=== PATIENT | female | born 1950 | race Two or more races ===

== ENCOUNTER 2018-07-16 07:30 | Day surgery (SDC) | payer MEDICARE, BC ==
[~2018-07-16] VITALS: Ht 162.6 cm; Wt 61.2 kg
[2018-07-16] VITALS (8 sets, daily range): BP systolic 92–102; BP diastolic 58–66
[~2018-07-16 07:30] MED LIST: NKM
--- NOTE | 2018-07-16 07:47 | Short Stay Surgery H&P ---
History of Present Illness History of Present Illness Chief Complaint Patient is for screening colon HPI Anna Navarrete is a 68 year old female who was admitted on for Screening Patient History Allergies: Coded Allergies: ASPIRIN (Verified Allergy, Intermediate, RHINITIS, 04/22/13) Medication History Scheduled No Known Medications* (NKM - No Known Medications*), 0 ., (Reported) Review of Systems Cardiovascular: Reports: no symptoms Respiratory: Reports: no symptoms Skeletal: Reports: no symptoms Gastrointestinal: Reports: no symptoms Genitourinary: Reports: no symptoms Neurologic: Reports: no symptoms Endocrine: Reports: no symptoms Physical Exam Skin: normal HENT: normal Heart: normal Lungs: normal Abdomen: normal Extremities: normal Genitourinary: normal Plan Plan of Care Total colonoscopy Preop Interventions None Summary of Findings See the reports Attestation Are the patient's medical conditions optimized for surgery? Attestation Response: yes Malik Henderson MD Jul 16, 2018 07:47
--- NOTE | 2018-07-16 07:48 | Pre-Procedure Note/Attestation ---
Pre-Procedure Note/Attestation Complete Prior to Procedure Planned Procedure: left Procedure Narrative: Examination of the total colon via colonoscopy Indications for Procedure Pre-Operative Diagnosis: R/O colon polyp/CA Attestation I attest that I discussed the nature of the procedure; its benefits; risks and complications; and alternatives (and the risks and benefits of such alternatives ), prior to the procedure, with the patient (or the patient's legal sales representative malt liquors). I attest that, if there was a reasonable possibility of needing a blood transfusion, the patient (or the patient's legal sales representative malt liquors) was given the [facility] standardized written summary, pursuant to the Reji Doug Blood Safety Act ([place] Health and Safety Code # 1645, as amended). I attest that I re-evaluated the patient just prior to the surgery and that there has been no change in the patient's H&P, except as documented below: Malik Henderson MD Jul 16, 2018 07:48
--- NOTE | 2018-07-16 07:49 | Discharge Instructions ---
Discharge Instructions Discharge Instructions Follow up with: will talk with family For Congestive Heart Failure Reminder Report to your physician any weight gain of 5 pounds or more in one week. Malik Henderson MD Jul 16, 2018 07:49
[2018-07-16] MEDS ORDERED: LR 1000ml ONE (08:00)
[2018-07-16] MEDS ORDERED: Propofol 200mg/20ml IV ONE (08:00)
[2018-07-16] MEDS ORDERED: Lidocaine 1% MPF 10mg/ml 5ml ONE (08:00)
--- NOTE | 2018-07-16 08:09 | Anethesia Preoperative Eval ---
Anesthesia Pre-op PMH/ROS General Date of Evaluation: Jul 16, 2018 Time of Evaluation: 08:00 Anesthesiologist: karla ASA Score: ASA 2 Mallampati Score Class I : Soft palate, uvula, fauces, pillars visible Class II: Soft palate, uvula, fauces visible Class III: Soft palate, base of uvula visible Class IV: Only hard plate visible Mallampati Classification: Class II Surgeon: roseanne Diagnosis: egd/colonoscopy Surgical Procedure: colon screening Anesthesia History: none Social History: smoking - nonsmoker Family History: no anesthesia problems Allergies: Coded Allergies: ASPIRIN (Verified Allergy, Intermediate, RHINITIS, 04/22/13) Medications: see eMAR Patient NPO?: Yes Past Medical History Cardiovascular: Reports: other - hypercholesterolemia Neurologic/Psychiatric: Reports: depression/anxiety PSxH Narrative: sinus sx, tonsillectomy Anesthesia Pre-op Phys. Exam Physician Exam Constitutional: NAD Neurologic: CN 2-12 intact Cardiovascular: RRR Respiratory: CTA Gastrointestinal: S/NT/ND Airway Exam Mallampati Score: Class II MO: limited Neck: flexible TMD: 2fb ROM: limited Anesthesia Pre-op A/P Risk Assessment & Plan Assessment: asa2 Plan: mac Status Change Before Surgery: No Pre-Antibiotics Drug: Kasia Lebron MD Jul 16, 2018 08:09
[2018-07-16] MEDS ORDERED: DiphenhydrAMINE 50mg/ml Inj IVP PRN (08:15)
[2018-07-16] MEDS ORDERED: Midazolam 2mg/2ml Inj IVP PRN (08:15)
[2018-07-16] MEDS ORDERED: Atropine Inj 1mg/10ml Syr IV PRN (08:15)
[2018-07-16] MEDS ORDERED: fentaNYL 100 mcg/2 mL IV PRN (08:15)
[2018-07-16] MEDS ORDERED: ASPIR 8181 MG ORAL (08:40)
--- NOTE | 2018-07-16 08:41 | Endoscopy Procedure Note ---
Endoscopy Procedure Note General Indication for Procedure: screening colon ? intra-abdominal mass Procedures Performed: EGD - Completely Normal Upper GI. endoscopy, biopsy was done per random from gastric body, colonoscopy - Minimal internal hemorrhoids otherwise completely normal total colonoscopy upto the cecal base. Specimen: yes Pt Tolerated Procedure Well: Yes Estimated Blood Loss: none Anesthesia Anesthesiologist: Dr. Howell Anesthesia: moderate sedation Medications Medication Given: see anesthesia record Inserted Devices Implant(s) used?: No Quality Quality of Bowel Preparation: Excellent Did scope reach the cecum?: Yes Was there any complications?: No GI Core Measures 50 yrs or older w/o bx or poly: Yes 10yrs. F/U not recommended: No 10 yrs. F/U needed: Yes 18 years or older w/prev. colo: No <3yrs. since last colonoscopy: No Med reason:<3 yrs.: System Reason:<3 yrs.: Last colonoscopy >= to 3yrs: Yes Malik Henderson MD Jul 16, 2018 08:41
--- NOTE | 2018-07-16 09:44 | Immediate Post-Op Evaluation ---
Immediate Post-Op Evalulation Immediate Post-Op Evalulation Procedure: edg/colonoscopy/bx Date of Evaluation: Jul 16, 2018 Time of Evaluation: 08:59 IV Fluids: 200ml lr Blood Products: none Estimated Blood Loss: negligible Blood Pressure Systolic: 94 Blood Pressure Diastolic: 60 Pulse Rate: 58 Respiratory Rate: 18 O2 Sat by Pulse Oximetry: 100 Temperature (Fahrenheit): 97.6 Pain Score (1-10): 0 Nausea: No Vomiting: No Complications none Patient Status: awake, reacts, patent Hydration Status: adequate Drug: Kasia Lebron MD Jul 16, 2018 09:44
--- NOTE | 2018-07-16 09:45 | 48 Hour Post Anesthesia Eval ---
Post Anesthesia Evaluation Procedure: edg/colonoscopy/bx Date of Evaluation: Jul 16, 2018 Time of Evaluation: 09:01 Blood Pressure Systolic: 101 0: 66 Pulse Rate: 58 Respiratory Rate: 18 Temperature (Fahrenheit): 97.6 O2 Sat by Pulse Oximetry: 100 Airway: patent Nausea: No Vomiting: No Pain Intensity: 0 Hydration Status: adequate Cardiopulmonary Status: stable Mental Status/LOC: patient returned to baseline Post-Anesthesia Complications: none Follow-up care needed: N/A Kasia Howell MD Jul 16, 2018 09:45
--- NOTE | 2018-07-16 15:16 | Operative Note - Dictated ---
DATE OF OPERATION: 07/16/2018 SURGEON: Malik Henderson M.D. PROCEDURE: Esophagogastroduodenoscopy with biopsy. PREOPERATIVE DIAGNOSIS: Possible intra-abdominal mass, question rule out gastric source. POSTOPERATIVE DIAGNOSIS: Completely normal upper GI endoscopy. No evidence of any abnormality in the stomach. Biopsy was taken from gastric body. MEDICATION USED: Per Dr. Traore. INSTRUMENT: GIF Olympus upper GI video endoscope. DESCRIPTION OF PROCEDURE: The patient after arriving in the endoscopy unit, was told about risks and benefits of the procedure that she accepted and signed informed consent. She was then put on the left lateral decubitus position. After adequate IV sedation, the scope was gently passed through the cricopharyngeal area, was lodged into the upper esophagus, and gradually advanced towards gastroesophageal junction. The entire length of the esophagus looked normal. There was no any evidence of stricture, ulcers, inflammatory process, or exudative process etc. GE junction also looked normal without evidence of Will's or hiatal hernia, etc. At this time, the scope was gradually advanced into the stomach. Gastric cavity was distended with insufflation of air and the areas of the fundus and the body and the antrum were examined in passementerie worker fashion, which revealed basically normal findings. There was no evidence of inflammatory process, mass, external pressure, or submucosal lesion, etc. The retroflexion maneuver was also applied and the area of the gastroesophageal junction was examined in a closer fashion, which revealed completely to be within normal limits. Finally, after obtaining the random biopsy from gastric body, the scope was gradually passed through the antrum, introduced into the pylorus. First and second portion of duodenum were found to be also completely normal. Finally, the scope was pulled out and procedure was terminated. The patient tolerated the procedure well. Malik Henderson M.D. DR: TAMERA JOB#: [id number] CC:
--- NOTE | 2018-07-16 15:46 | Operative Note - Dictated ---
DATE OF OPERATION: 07/16/2018 SURGEON: Malik Henderson M.D. ANESTHESIOLOGIST: Dr. Traore. PROCEDURE: Total colonoscopy. PREOPERATIVE DIAGNOSIS: Intra-abdominal mass, question left upper quadrant lesion, rule out colonic source ? POSTOPERATIVE DIAGNOSIS: Minimal internal hemorrhoid, otherwise completely normal total colonoscopy up to the base of the cecum as examined. MEDICATION USED: Per Dr. Traore. INSTRUMENT: GIF Olympus videocolonoscope. DESCRIPTION OF PROCEDURE: The patient, after arriving in endoscopy unit, was told about risks and benefits of the procedure which she accepted and signed informed consent. She was then put on the left lateral decubitus position. After adequate IV sedation, the scope was gradually introduced in the rectoanal area. It revealed evidence of hemorrhoidal tags outside of the rectum of no great significance. The scope was then introduced into the rectum and retroflexion maneuver was applied, which revealed evidence of minimal internal hemorrhoids without friability. The rectum itself was completely normal without any mass or inflammatory process, etc. Gradually at this time, the scope was passed through the rectosigmoid area, introduced into the left descending colon, and was advanced towards the splenic flexure. These areas also remained to be completely normal. There was no any evidence of extracolonic pressure, masses, submucosal lesions, etc. At this time, the scope was advanced into the transverse colon, reaching to the hepatic flexure, guided into the right colon all the way to the base of the cecum where the appendiceal opening was also visualized. All these areas also continued to be within normal limits without any pathology. The colon cleanup was excellent and at this time, within 6 minutes, the scope was gradually pulled out and finding no other abnormalities, procedure was terminated. The patient tolerated the procedure well and left the endoscopy room in good condition. Malik Henderson M.D. DR: Katelin JOB#: [id number] CC:
== END 2018-07-16 09:45 | disposition home or self-care (01) ==
LOC: GAS 07:30
DX: Z12.11 Encounter for screening for malignant neoplasm of colon (principal); Z88.6 Allergy status to analgesic agent; K64.8 Other hemorrhoids; K64.4 Residual hemorrhoidal skin tags; R19.00 Intra-abdominal and pelvic swelling, mass and lump, unspecified site; E78.00 Pure hypercholesterolemia, unspecified; F32.9 Major depressive disorder, single episode, unspecified; F41.9 Anxiety disorder, unspecified
CPT/HCPCS: 43239; G0121; J2704; 94003; 94150